=== PATIENT | female | born 1975 | race Hispanic/Latino ===

== ENCOUNTER → 2023-12-05 10:48 | Outpatient (REF) | payer OTHER, SELFPAY | LOC: PAVMRI 10:48 | PROVIDERS: ATTENDING PHYSICIAN Family Medicine; REFERRING PHYSICIAN Psychiatry & Neurology Neurology | DX: R94.131 Abnormal electromyogram [EMG] (principal); G54.0 Brachial plexus disorders | CPT/HCPCS: 71552; A9575 ==

== ENCOUNTER → 2024-06-19 11:24 | Outpatient (REF) | payer OTHER, SELFPAY | LOC: RCS 11:24 | PROVIDERS: ATTENDING PHYSICIAN Internal Medicine Cardiovascular Disease; FAMILY PHYSICIAN Family Medicine | DX: R00.2 Palpitations (principal) | CPT/HCPCS: 93306 ==

== ENCOUNTER → 2024-10-29 08:07 | Outpatient (REF) | payer OTHER, SELFPAY | LOC: RAD 08:07 | PROVIDERS: ATTENDING PHYSICIAN Internal Medicine Interventional Cardiology; FAMILY PHYSICIAN Family Medicine | DX: I10 Essential (primary) hypertension (principal) | CPT/HCPCS: 93975 ==

== ENCOUNTER → 2024-11-13 19:34 | Outpatient (REF) | payer OTHER, SELFPAY | LOC: MRI 19:34 | PROVIDERS: ATTENDING PHYSICIAN Family Medicine | DX: M54.81 Occipital neuralgia (principal); M54.2 Cervicalgia | CPT/HCPCS: 72141 ==

== ENCOUNTER → 2024-11-25 08:53 | Outpatient (REF) | payer OTHER, SELFPAY | LOC: RAD 08:53 | PROVIDERS: ATTENDING PHYSICIAN Family Medicine | DX: R22.1 Localized swelling, mass and lump, neck (principal) | CPT/HCPCS: 70491; Q9967 ==